=== PATIENT | male | born 1980 ===

== ENCOUNTER 2019-12-03 15:02 | Outpatient (CLI) | payer BC ==
--- NOTE | 2019-12-03 15:38 | ULT ---
US Renal Bilateral STANDARD HISTORY: Chronic renal disease COMPARISON: None. FINDINGS: The right kidney measures 10.3 cm in length and the left kidney measures 10.6 cm in length. No focal mass or hydronephrosis is seen on either side. Cortical echogenicity and thickness is normal. The urinary bladder is not satisfactorily distended and has a volume of 11 cc. IMPRESSION: Unremarkable exam.
== END 2019-12-03 15:03 | disposition home or self-care (01) ==
LOC: BICULT 15:02
PROVIDERS: ATTEND Internal Medicine Nephrology
DX: N18.1 Chronic kidney disease, stage 1 (principal)
CPT/HCPCS: 76770

== ENCOUNTER 2024-05-24 07:50 | Emergency (ER) | payer BC ==
[2024-05-24] MEDS ORDERED: Acetaminophen 500 MG TAB ONE (08:15)
[2024-05-24] MEDS ORDERED: Methocarbamol 500 MG TAB ONE (08:15)
[2024-05-24] MEDS ORDERED: Ketorolac Tromethamine 30 MG (1 mL) VIAL ONE (08:15)
== END 2024-05-24 10:07 | disposition home or self-care (01) ==
LOC: ERS 07:50
DX: M54.50 Low back pain, unspecified (principal); I10 Essential (primary) hypertension
CPT/HCPCS: 96372; 99283; J1885